=== PATIENT | male | born 1975 | race Caucasian/White ===

== ENCOUNTER 2017-10-06 06:46 | Day surgery (SDC) | payer OTHER ==
--- NOTE | 2017-10-05 10:54 | PDGENHP ---
History and Physical - Chief Complaint Left Hip Pain - History of Present Illness Diagnosis: 1. Bilateral~Femoroacetabular impingement (SHAMIKA) Cam type, with~resultant labral tear, Left side symptomatic with atypical presentation 2. ~~Left Hip Borderline Dysplasia 3. ~~Bilateral~Early Osteoarthritis 4. ~~Left SI Joint pain 5. OP HISTORY OF PRESENT ILLNESS: Eugeniais a 42 y.o.~~~active male~who I have had the pleasure to consult on today. I have enjoyed meeting him. He~lives in [place]. ~Eugeniaworks as a elementary instructional coach at . ~He~is ; he~has 4~children. ~Eugeniaenjoys running, hiking, basket ball and coaching football but he is not been so active for the past 2 years. Wilver's left~hip pain started 2 years ago, with no~recalled trauma or injury, and with some~previous complaints. It all started with numbness and tingling of his left leg for which he was evaluated and he was treated for lumbar disc disease, piriformis syndrome and sacroiliitis. He had had injections for those and the SI joint injection helped the most with the numbness but the pain has gotten worse in the past 5 months. Eugeniadoes not have~a known history of hip dysplasia. Presentation today is of posterior, lateral left~hip pain. ~The hip does not~ wake him~at night and does not~click and catch on him. Sitting can be uncomfortable~for him. Eugeniadoes not~report suffering from lower back pain episodes. Eugeniahas~participated in physical therapy and has~tried other conservative measures including hip injections. He had had US guided left hip injection yesterday and it gave 80% relief for 5 hours. ~He~has not~received sufficient symptomatic improvement. Eugeniahas~utilized medication for pain management, including NSAID and Celebrex. Eugeniahas used NSAID~for 2 years. Eugeniadenies issues with the right~hip. ~ Eugeniaunderstands that he~has a hip and pelvis problem which should be researched and wishes to get a better understanding of his~hip status, followed by an establishment of a treatment strategy, hoping he~would be able to get back to his~well being active life. History: Past medical history: ~ None which is relevant Relevant familial history: None which is relevant Past surgical history: No. Surgery Anesthesia Year Outcome 1 Right shoulder surgery [place] 1992 Good 2 Left shoulder surgeriesx3 [place] [id number] Eugeniadenies problematic issues with general anesthesia in the past. I have reviewed, verified and agree with the past medical, surgical, family and social history. Current Medications:~has a current medication list which includes the following prescription(s): celecoxib and cyclobenzaprine hcl. ALLERGIES:~has No Known Allergies. Objective: Physical Examination: Eugeniais 6~feet 2~inches tall and weighs 230~Lbs. Eugeniais AAO x3; he~is well- nourished, in NAD. Skin is warm and dry. ~Breathing is non-labored. ~CV with RRR by pulse. Abdomen is soft, NTND. Currently, he~walks with a normal~gait. Trendelenburg sign is negative~and proprioception is reduced, both~sides. He~presents with no~signs of joint laxity. Beightons Score: 0 He~is fit looking. ~~ Lower spine examination is negative~for sciatic or femoral nerve irritation with negative~SLR &~femoral stretch tests. Range of motion of the spine is normal~for flexion, extension, and rotations, with no~associated pain. Strength, Sensation and pulses are normal - bilaterally~except mild weakness of knee flexion on the left. Ankles and knees exams are normal~and no~mal-alignment is evident. He~has no leg length discrepancy. Thigh circumference is asymmetric~with intermediate~muscle atrophy~on left~side. Hip ROM (degrees): FL ER At 90~hip FL IR At 90~hip FL AB AD EX IR Neutral hip ER Neutral hip R 110 50 10 40 5 10 35 35 L 110 45 20 45 5 10 35 35 Specific hip and pelvis tests: Quadrant IVANNA Roll Add. Longus R + + Negative + L +++ +++ Negative Negative Glut. Med ITB Pos. Imp R Negative 5/5 strength Negative 5/5 strength Negative L Negative 5/5 strength Negative 5/5 strength Negative Squeeze test measured weak Bony Symphysis pubis is pain free~to touch while concentric activity of the rectus abdominis, does not~produce pain at its insertion. Ilio Psos specific tests are negative for pain during cycling for both hips~and remarkable for no snap. HF has no pain on both hips. Anterior~capsule tenderness on both sides(L>>R). Greater trochanteric burse is pain free~on both hips. Piriformis tests: FAIR is negative, with no~local signs of neuritis related to sciatic nerve. SIJs examination is normal~with normal~IVANNA in relation and local tenderness. Hamstrings tests are positive~functional contraction and positive~tendinopathy the left hip. On a daily basis, the following percentages reflect Wilver's overall total pain: Deep hip: 100%~ Imaging: Radiology studies which I have personally reviewed, analyzed and measured are below: XR: AP of the hip and pelvis: Performed in a satisfactory~technique Coccyx to pubic symphysis distance : overlapping. 15~degrees caudal. [place] Lines are preserved. Significant Pathological signs are seen in the Symphysis Pubis. Minimal~Pathological signs are seen at the Ischial tuberosity. ~ Specific measurements show: NSA~ LCE Sourcil~Angle Sharp's angle Lat. Cam Lat. Pincer C.Over~sign Head~Coverage % ATDmm R N 27 8 40 ++ - - N N L N 21 11 43 ++ - - 70 N Pos. wall sign ISS NAD ~~Dysplasia Comments R Negative Negative 19~mm Negative L Negative Negative 21~mm ++ Sclerosis Sup. Lat. OA Cysts Joint Space-WBZ Joint Space-Medial R ++ + Early cyst formation in the acetabulam 3.3~mm 4.2~mm L ++ + Early cyst formation in the acetabulam 4.3~mm 4.5~mm X Table lateral: Anterior cam lesion is seen~on both hips. Alpha Angle: ~ Right 65~dergrees Left 73~degrees Left Hip MRI shows: Cartilage damage, mild subchondral edema, and hypertrophic labrum with tear. Impression and plan: Eugeniais a 42 y.o.~active male~suffering from symptomatic left~hip pain due to ~ Femoroacetabular impingement (SHAMIKA) Cam type, with~resultant labral tear, Hip Borderline Dysplasia,~Early Osteoarthritis and SI Joint pain causing significant disability to him~and altering his~sport and life activities. He has similar radiographic features on the right side. Physical examination, imaging, and his~story correspond with the diagnosis mentioned above. I explained that femoroacetabular impingement (SHAMIKA) arises due to a bony or soft tissue conflict between the femur (ball) and acetabulum (socket) caused by an abnormality in the shape of the hip joint. Over time, repetitive impingement can result in damage to the labrum and adjacent surface cartilage within the socket, ultimately giving rise to progressive osteoarthritis of the hip. I explained that although a labral tear can be a source of pain, it is rarely the root of the problem and typically occurs secondary to an underlying abnormality in the shape and mechanics of the hip joint. ~ I reviewed conservative treatment options for SHAMIKA including activity modification to avoid positions of impingement, physical therapy, non-steroidal anti-inflammatory medications, and various injections (corticosteroid and PRP) aimed at reducing inflammation in the hip joint or/and preventing dynamic impingement. PRP injections may promote healing and reduce symptoms in certain cases but it will not repair chronically damaged tissue. Although these measures may help to buy time and reduce current level of symptoms, they are not a definitive solution to the problem given the underlying abnormality in the shape of the hip joint. Patients who have failed conservative management and continue to experience symptoms are candidates for hip arthroscopy, a minimally invasive surgery that can definitively address the underlying problem. Hip arthroscopy typically includes treating the labrum with either repair or reconstruction of the torn labrum; as well as addressing the underlying abnormalities by restoring the normal shape to the hip joint. ~If the cartilage is damaged a Microfracture~ surgical procedure may also be necessary to help stimulate the growth of fibrocartilage. ~If a patient requires a labral reconstruction or a Microfracture, the initial rehabilitation from the surgery may take longer, but the long term care social worker results are typically favorable. We explained that a hip preservation procedure (arthroscopy) might serve as a bridging procedure to try and buy as much time as possible, keeping his~[place] joint before joint replacement would be unavoidable. With that in mind, the outlined treatment options are: (1) To wait for THR utilizing pain medication, intra articular injections and lifestyle modification (to avoid or reduce symptoms); (2) THR now as an end-point procedure understanding the life-modifications associated with this procedure regarding activity level; or (3) Hip preservation surgery, specifically hip arthroscopy, to address labral, cartilage and bony pathology (with the possibility of reconstructing the labrum if needed). These last choice comes~with the understanding of what is outlined above, specifically that this may not work as it usually does with biologically more preserved joints, and that based on the cartilage damage~and dysplastic characteristics, the results are less reproducible than in biologically more preserved joints. Additionally, these surgeries do not eliminate the possibility for future THR. If the hip preservation techniques fail to yield the expected results, THR can be done promptly. I reviewed the technical aspects of hip arthroscopy including risks, benefits, and expected course of recovery. Wilver~understands that hip arthroscopy is a minimally invasive outpatient procedure carried out through small incisions on the outer aspect of the hip joint. During surgery, the labral tear will be identified and either repaired or reconstructed~using bone anchors and suture material. Additionally, any excessive bone will be removed with a high-speed day to reshape the hip joint and restore normal anatomy. Risks include infection, bleeding, injury to nearby nerves or vessels, stiffness, persistent pain, instability, venous thromboembolic disease, and traction related complications including temporary foot numbness. Rarely, revision surgery may be required to address these problems. Overall recovery takes approximately 4~ 8~months depending on the extent of damage and degree of repair. In the event that the labral tissue quality is inadequate for successful repair and healing, Wilver~understands that a labral reconstruction will be performed. This procedure entails placing a cadaver tissue graft within the hip joint and stabilizing it with bone anchors to build a new labrum. The overall recovery time for labral reconstruction is similar to that of labral repair, although the surgical procedure takes longer to perform. Eugeniawill review the info presented. In order to obtain more detailed information regarding the alignment, orientation, and shape of the bony hip and pelvis I will order a CT scan to be performed. The results of the CT scan, including femoral torsion and acetabular version measured values and 3D images, will aid me in deciding on the best treatment strategy and surgical pre-planning. Eugeniawill talk with our surgical elastic knitter about possible surgery dates. Eugeniais happy with this plan. I have also supplied him~with handout~with details of our contact info and our web site. I wish~Eugeniaall the best, ~~ Gaston Carlisle MD History Information - Allergies/Home Medication List Allergies/Adverse Reactions: No Known Allergies Allergy (Verified 09/09/17 12:04) Home Medications: CeleBREX 12/12/17 [Last Taken Unknown] VENLAFAXINE HCL 09/09/17 [Last Taken Unknown] I have personally reviewed and updated: medical history - Social History Smoking Status: Never smoked Review of Systems Review of Systems: Physical Exam Physical Exam:
[2017-10-06] MEDS ORDERED: LIDOCAINE 1% 2 ML INJ ONE (07:03)
[2017-10-06] MEDS ORDERED: ceFAZolin 2 GM/SWFI 2 GM/20 ML SYR IVP ONE (07:10)
[2017-10-06] MEDS ORDERED: PREGABALIN 150 MG CAP PO ONE (07:10)
[2017-10-06] MEDS ORDERED: ACETAMINOPHEN 500 MG TAB PO ONE (07:10)
[2017-10-06] MEDS ORDERED: LIDOCAINE 1% 2 ML INJ ID PRN (07:11)
[2017-10-06] MEDS ORDERED: LR 1,000 ML IV ONE (07:11)
[2017-10-06] MEDS ORDERED: BUPIVACAINE 0.25% 30 ML SDV ONE (07:41)
[2017-10-06] MEDS ORDERED: EPINEPHrine 30 MG/30 ML MDV (0.1 MG/0.1 ML) ONE (07:42)
[2017-10-06] MEDS ORDERED: MIDAZOLAM 2 MG/2 ML VIAL IVP ONE (08:14)
--- NOTE | 2017-10-06 08:14 | PDANEPAE ---
ANE History of Present Illness left hip SHAMIKA ANE Past Medical History - Cardiovascular History Hx Hypertension: No Hx Arrhythmias: No Hx Chest Pain: No Hx Coronary Artery / Peripheral Vascular Disease: No Hx CHF / Valvular Disease: No Hx Palpitations: No - Pulmonary History Hx COPD: No Hx Asthma/Reactive Airway Disease: No Hx Recent Upper Respiratory Infection: No Hx Oxygen in Use at Home: No Hx Sleep Apnea: No Sleep Apnea Screening Result - Last Documented: Negative - Neurologic History Hx Cerebrovascular Accident: No Hx Seizures: No Hx Dementia: No - Endocrine History Hx Diabetes: No Hypothyroid: No Hyperthyroid: No Obesity: no - Renal History Hx Renal Disorders: No - Liver History Hx Hepatic Disorders: No - Neurological & Psychiatric Hx Hx Neurological and Psychiatric Disorders: No - Cancer History Hx Cancer: No - Congenital Disorder History Hx Congenital Disorders: No - GI History GERD: no Hx Gastrointestinal Disorders: No - Other Health History Other Health History: none - Chronic Pain History Chronic Pain: Yes (left hip) - Surgical History Prior Surgeries: labrum repair of right shoulder. labrum repair of left shoulder x3 ANE Review of Systems Review of systems is: negative Review of Systems: - Exercise capacity METS (RN): 4 METS ANE Patient History - Allergies Allergies/Adverse Reactions: No Known Allergies Allergy (Verified 09/09/17 12:04) - Home Medications Home medications: home medication list seen and reviewed Home Medications: CeleBREX 09/09/17 [Last Taken Unknown] VENLAFAXINE HCL 09/09/17 [Last Taken Unknown] - NPO status NPO Since - Liquids (Date): 10/05/17 NPO Since - Liquids (Time): 22:00 NPO Since - Solids (Date): 10/05/17 NPO Since - Solids (Time): 19:00 - Anes Hx Anes Hx: no prior problems - Smoking Hx Smoking Status: Never smoked - Family Anes Hx Family Hx Anesthesia Complications: none ANE Labs/Vital Signs - Vital Signs Blood Pressure: 140/100 Heart Rate: 66 Respiratory Rate: 72 O2 Sat (%): 96 Height: 187.96 cm Weight: 104.326 kg ANE Physical Exam - Airway Neck exam: FROM Mallampati Score: Class 1 Mouth exam: normal dental/mouth exam - Pulmonary Pulmonary: no respiratory distress - Cardiovascular Cardiovascular: regular rate and rhythym - ASA Status ASA Status: I ANE Anesthesia Plan Anesthesia Plan: general endotracheal anesthesia
[2017-10-06] MEDS ORDERED: fentaNYL 100 MCG/2 ML INJ ONE ×3 (08:20→15:38)
[2017-10-06] MEDS ORDERED: PROPOFOL 200 MG/20 ML VIAL ONE ×2 (08:20)
[2017-10-06] MEDS ORDERED: fentaNYL 250 MCG/5 ML INJ ONE (08:21)
[2017-10-06] MEDS ORDERED: ONDANSETRON 4 MG/2 ML VIAL ONE ×3 (08:24→16:37)
[2017-10-06] MEDS ORDERED: LIDOCAINE 2% 5 ML SDV ONE (08:24)
[2017-10-06] MEDS ORDERED: DEXAMETHASONE 4 MG/ML VIAL ONE (08:24)
[2017-10-06] MEDS ORDERED: ROCURONIUM 100 MG/10 ML VIAL ONE (08:24)
[2017-10-06] MEDS ORDERED: SUGAMMADEX SODIUM 200 MG/2 ML VIAL IVP ONE (08:24)
[2017-10-06] MEDS ORDERED: hydrALAZINE 20 MG/ML VIAL ONE (12:44)
[2017-10-06] MEDS ORDERED: ceFAZolin 1 GM VIAL ONE (12:44)
[2017-10-06] MEDS ORDERED: LABETALOL HCL 5 MG/ML 20 ML MDV IVP PRN (12:46)
[2017-10-06] MEDS ORDERED: NALOXONE HCL 0.4 MG/ML INJ IVP PRN (12:46)
[2017-10-06] MEDS ORDERED: HYDROCODONE/APAP 5/325 TAB PO PRN (12:46)
[2017-10-06] MEDS ORDERED: OXYCODONE/APAP 5/325 TAB PO PRN (12:46)
[2017-10-06] MEDS ORDERED: ALBUTEROL 3 ML DEYVIAL IH PRN (12:46)
[2017-10-06] MEDS ORDERED: PROMETHAZINE HCL 25 MG/ML INJ IVP PRN (12:46)
[2017-10-06] MEDS ORDERED: LABETALOL HCL 5 MG/ML 20 ML MDV ONE (12:54)
[2017-10-06] MEDS ORDERED: KETOROLAC 30 MG/1 ML SDV ONE (14:41)
[2017-10-06] MEDS ORDERED: HYDROmorphONE/DILAUDID 1 MG/ML INJ ONE (15:38)
[2017-10-06] MEDS: HYDROmorphONE/DILAUDID 1 MG/ML INJ IVP PRN ×2 (15:40→15:59)
[2017-10-06] MEDS: fentaNYL 100 MCG/2 ML INJ IVP PRN ×2 (15:40→15:58)
--- NOTE | 2017-10-06 15:41 | POSTANESTH ---
Post Anesthetic Evaluation Cardiovascular Status: Normal, Stable Respiratory Status: Normal, Stable Level of Consciousness/Mental Status: Can Participate in Eval Pain Control: Adequate, Prn Tx Ordered Nausea/Vomiting Control: Adequate, Prn Tx Ordered Complications Possibly Related to Anesthesia: None Noted
[2017-10-06] MEDS: ONDANSETRON 4 MG/2 ML VIAL IVP PRN ×2 (16:10→16:38)
[2017-10-06 16:25] VITALS: TEMP 96.8
[2017-10-06 16:57] VITALS: RESP 11
[2017-10-06] MEDS ORDERED: OXYCODONE/APAP 5/325 TAB ONE (17:14)
[2017-10-06 17:53] VITALS: BP 131/85; PULSE 95; O2SAT 92
== END 2017-10-06 18:18 | disposition home or self-care (01) ==
LOC: FSGY 06:46
PROVIDERS: ATTEND Orthopaedic Surgery Sports Medicine
PROC: 0SQB4ZZ Repair Left Hip Joint, Percutaneous Endoscopic Approach (ICD-10-PCS; principal; 2017-10-06 08:30)
DX: S73.192A Other sprain of left hip, initial encounter (principal); M25.852 Other specified joint disorders, left hip; Q65.89 Other specified congenital deformities of hip; M16.12 Unilateral primary osteoarthritis, left hip; X58.XXXA Exposure to other specified factors, initial encounter
CPT/HCPCS: C1713; C1762; J0171; J0360; J0690; J1100; J1170; J1885; J2250; J2405; J2704; J3010; J3490